=== PATIENT | female | born 1970 | race Asian ===

== ENCOUNTER 2019-03-15 20:43 | Emergency (ER) | payer OTHER ==
[~2019-03-15] VITALS: Ht 165.1 cm; Wt 158.8 kg
[~2019-03-15 20:43] MED LIST: CEPHALEXIN 500500 M3 PO; CIPRODEX OTIC7.5 ML OTIC; HYDROCODONE-AP1 EAC6 PO; IBUPROFEN 800800 M1 PO; PROVERA10 MG PO
[2019-03-15] MEDS ORDERED: BENICAR20 MG PO (20:57)
[2019-03-15 21:21] LABS: URINE BILIRUBIN NEGATIVE (Negative); URINE BLOOD NEGATIVE (Negative); URINE CLARITY CLEAR; URINE COLOR YELLOW; URINE GLUCOSE-RANDOM NEGATIVE (Negative); URINE KETONES NEGATIVE (Negative); URINE LEUKOCYTES-REFLEX NEGATIVE (Negative); URINE NITRITE-REFLEX NEGATIVE (Negative); URINE PROTEIN NEGATIVE (Negative); URINE UROBILINOGEN 0.2 E.U./dl (0.2-1.0)
[2019-03-15 21:25] LABS: ABSOLUTE BASOPHILS 0.1 thou/uL (0.0-0.2); ABSOLUTE EOSINOPHILS 0.2 thou/uL (0.0-0.7); ABSOLUTE LYMPHOCYTES 2.5 thou/uL (0.8-5.3); ABSOLUTE MONOCYTES 0.5 thou/uL (0.0-1.2); ABSOLUTE NEUTROPHILS 5.3 thou/uL (1.6-8.1); BASOPHILS 0.7 %; EOSINOPHILS 2.5 %; HEMATOCRIT 36.1 % (37.0-47.0); HEMOGLOBIN 12.3 gm/dL (12.0-15.0); LYMPHOCYTES 29.3 %; MCH 30.1 pg (26.0-34.0); MCHC 34.1 g/dL (28.0-37.0); MCV 88.1 fL (80.0-100.0); MONOCYTES 6.2 %; MPV 7.5 fl. (7.2-11.1); NUCLEATED RBCS 0 /100WBC; PLATELET COUNT* 312 thou/uL (150-400); POLYS 61.3 %; RDW-CV 13.9 % (10.5-14.5); WBC 8.7 thou/uL (4.0-11.0)
[2019-03-15 21:40] LABS: ALBUMIN 3.5 g/dL (3.4-5.0); CREATININE 0.7 mg/dL (0.6-1.3); POTASSIUM 3.8 mmol/L (3.5-5.1); TOTAL BILIRUBIN 0.4 mg/dL (<0.1-1.0); TOTAL PROTEIN 7.4 g/dL (6.4-8.2)
[2019-03-15] MEDS ORDERED: PREDNISONE50 MG PO (22:37)
[2019-03-15] MEDS ORDERED: IBUPROFEN 800800 MG PO (22:37)
[2019-03-15 22:48] VITALS: BP 113/50
--- NOTE | 2019-03-16 09:54 | EKG ---
[place] [address] ELECTROCARDIOGRAM REPORT Name: RAISA FLOREZ Tom Room: [facility]#: [id number] Admission: 03/15/19 Attend Phys: Discharge: 03/15/19 Date of : 72 Report #: [id number] THIS REPORT FOR: //name// [facility] ED Test Date: 2019-03-15 Test Time: 21:48:08 Pat Name: RAISA FLOREZ Department: Room: Gender: F Hospital Secretary: [place] : 1970 Requested By: Fabiola Hanna Order Number: [id number] MD: Sonny Douglas Measurements Intervals [place] Rate: 74 P: 12 [place]: 163 QRS: 4 QRSD: 90 T: 3 QT: 391 QTc: 434 Interpretive Statements Sinus rhythm Abnormal R-wave progression, late transition Borderline T wave abnormalities No previous ECG available for comparison Electronically Signed On 03-16-2019 9:54:40 CDT by Sonny Douglas [email or web address] <ELECTRONICALLY SIGNED> By: Sonny Douglas MD, [facility] 03/16/19 [id number] Sonny Douglas MD, FACC /EPI
== END 2019-03-15 22:48 | disposition home or self-care (01) ==
LOC: M.ERS 20:43
PROVIDERS: Personal Emergency Response Attendant
DX: B34.9 Viral infection, unspecified (principal); R51 Headache; R60.0 Localized edema; Z98.890 Other specified postprocedural states; Z90.49 Acquired absence of other specified parts of digestive tract